=== PATIENT | male | born 1950 | race Caucasian/White ===

== ENCOUNTER → 2017-01-01 | Day surgery (SDC) | payer MEDICARE, OTHER ==
[~2017-01-01] MED LIST: Lactated Ringers 1,000 ML IV SCH; Propofol 200 MG/20 ML SDV IV ONE
[2017-01-01 11:17] VITALS: BP 140/78
--- NOTE | 2017-01-04 06:56 | OR ---
DATE OF OPERATION: 01/01/2017 PREOPERATIVE DIAGNOSIS: CHRONIC GASTROESOPHAGEAL REFLUX DISEASE. POSTOPERATIVE DIAGNOSIS: 1. MILD DUODENITIS. 2. SPONTANEOUS REFLUX WITH SHORT SEGMENT PEARL'S CHANGES. SURGEON: Steve Choi MD PROCEDURE: ESOPHAGOGASTRODUODENOSCOPY WITH BIOPSIES X4, KIAH. ANESTHESIA: GLASS WASHER due to chronic GERD with elevated BMI and sleep apnea. COMPLICATIONS: None. SPECIMEN: 1. Duodenal bulb biopsy x2. 2. Distal esophageal biopsy x2. 3. Antral KIAH. FINDINGS: 1. Full-length EGD. 2. Mild duodenitis without ulceration. 3. Spontaneous reflux. 4. Short segment Pearl's changes. RECOMMENDATIONS: Medical follow up with Dr. Knutson for path reports and ongoing proton pump inhibitor use. INDICATIONS: The patient has been having some ongoing persistent reflux. Dr. Knutson recommended EGD for eval. DESCRIPTION OF PROCEDURE: The patient was prepped and draped, placed in the left lateral decubitus position. A lubricated Olympus gastroscope was inserted over a bit and easily intubated into the esophagus. Esophageal lining was benign in its entire course. The Z-line was crisp at around 40 cm. No obvious hernia present. No stricturing, ulceration, or otherwise. The patient does have one short segment Pearl's changes of about 1 cm to 2 cm related to spontaneous reflux without associated ulceration. Two biopsies of that area were taken. The scope was advanced into the stomach through the pylorus into the third portion of the duodenum. Second and third portion of the duodenum appeared benign. The patient does have some mild duodenitis of the bulb. Two biopsies were taken in the most affected areas. No erosions or ulcerations were seen. The scope was brought back into the stomach and retroflexed. The upper fundus and cardia appeared benign. Upon straightening, full evaluation of the rest of the gastric lining showed no polyps, masses, ulceration, or bleeding sites. No peptic ulcer disease. A CLOtest was obtained. Air was then suctioned and scope removed without complication. URIEL/SONJA /[id number]
== END ==
LOC: CC.SDS 09:46
PROVIDERS: ATTEND Family Medicine
DX: K29.80 Duodenitis without bleeding (principal); K26.9 Duodenal ulcer, unspecified as acute or chronic, without hemorrhage or perforation; K22.70 Barrett's esophagus without dysplasia; K21.9 Gastro-esophageal reflux disease without esophagitis; F41.9 Anxiety disorder, unspecified; M79.604 Pain in right leg; J30.9 Allergic rhinitis, unspecified; N40.0 Benign prostatic hyperplasia without lower urinary tract symptoms; M47.812 Spondylosis without myelopathy or radiculopathy, cervical region; F32.9 Major depressive disorder, single episode, unspecified; R13.10 Dysphagia, unspecified; E78.5 Hyperlipidemia, unspecified; I10 Essential (primary) hypertension; N40.1 Benign prostatic hyperplasia with lower urinary tract symptoms; R35.1 Nocturia; M70.20 Olecranon bursitis, unspecified elbow; R20.2 Paresthesia of skin; M79.671 Pain in right foot; M10.9 Gout, unspecified; G47.30 Sleep apnea, unspecified; M79.89 Other specified soft tissue disorders; E11.9 Type 2 diabetes mellitus without complications; E55.9 Vitamin D deficiency, unspecified; R63.5 Abnormal weight gain; Z79.82 Long term (current) use of aspirin; Z79.84 Long term (current) use of oral hypoglycemic drugs; Z79.899 Other long term (current) drug therapy; Z87.442 Personal history of urinary calculi; Z98.890 Other specified postprocedural states
CPT/HCPCS: 43239; 82962; 87081; J2704; J7120; 00740; 88305

== ENCOUNTER → 2017-12-31 | Day surgery (SDC) | payer MEDICARE, OTHER ==
[2017-12-31 08:54] VITALS: BP 114/70
--- NOTE | 2018-01-03 09:47 | OR ---
DATE OF OPERATION: 12/31/2017 PREOPERATIVE DIAGNOSIS: HISTORY OF POLYPS. POSTOPERATIVE DIAGNOSIS: HISTORY OF POLYPS. SURGEON: Steve Choi MD PROCEDURE: FULL-LENGTH COLONOSCOPY WITH POLYP REMOVAL X2, POLYP BIOPSY X4, LIPOMA BIOPSY X2. ANESTHESIA: FREELANCE RECRUITER. COMPLICATIONS: None. SPECIMEN: 1. Cecal biopsy x4. 2. Two small sessile polyps. 3. Biopsy x2, lipoma. FINDINGS: 1. Full-length colonoscopy. 2. Two larger villous adenomas in cecum/proximal ascending colon. 3. Hyperplastic polyps x2. 4. Submucosal lipoma. 5. Extremely poor bowel prep. 6. Minimal sigmoid diverticulosis. RECOMMENDATIONS: The patient will need consultation with Dr. Ken for endoscopic versus surgical removal of large villous adenoma near cecum. INDICATIONS: The patient apparently had a colonoscopy about 6 years ago, had 3 tubular adenomas removed. He was due for a 5-year followup. DESCRIPTION OF PROCEDURE: The patient was prepped and draped, placed in the left lateral decubitus position. A lubricated Olympus colonoscope was inserted and ultimately advanced to the cecum. The patient had a poor prep. A lot of liquid dark stool throughout, many areas were suctioned, many were not. Cecal pouch was visualized including the ileocecal valve with a lot of particulate stool in the cecal pouch, it was difficult to irrigate that out. Right alongside the ileocecal valve and the immediate proximal ascending colon, the patient had 2 separate villous lesions, 1 was elongated and likely removable with a snare. The second one deeper along the cecal rim was much larger, felt unsafe to remove in [place]. We did do 2 biopsies of each area. The rest of the ascending colon appeared benign, although visualization was difficult at times. In the mid to distal transverse colon, the patient had a larger submucosal lipoma, biopsy x2 and classic in appearance. Descending colon appeared benign. The sigmoid area did have a few scattered diverticula, but nothing severe. The patient did have 2 separate and small hyperplastic- appearing polyps, 1 in the mid to distal sigmoid colon, the second in the rectal vault, both were removed with a forceps biopsy x2 in their entirety. Resolution of bleeding was spontaneous. The rectal vault appeared benign. Other than that small polyp, retroflexion did not show any obvious perianal lesions. Air was then suctioned. Scope was removed without complication. URIEL/SONJA /[id number]
== END ==
LOC: CC.SDS 07:01
PROVIDERS: ATTEND Family Medicine
DX: Z12.11 Encounter for screening for malignant neoplasm of colon (principal); D12.0 Benign neoplasm of cecum; D12.5 Benign neoplasm of sigmoid colon; K62.1 Rectal polyp; D17.5 Benign lipomatous neoplasm of intra-abdominal organs; K57.30 Diverticulosis of large intestine without perforation or abscess without bleeding; G47.33 Obstructive sleep apnea (adult) (pediatric); E11.9 Type 2 diabetes mellitus without complications; E03.9 Hypothyroidism, unspecified; I10 Essential (primary) hypertension; E53.8 Deficiency of other specified B group vitamins; Z86.010 Personal history of colon polyps; Z79.82 Long term (current) use of aspirin; Z79.84 Long term (current) use of oral hypoglycemic drugs; Z79.51 Long term (current) use of inhaled steroids; Z79.1 Long term (current) use of non-steroidal anti-inflammatories (NSAID); Z79.899 Other long term (current) drug therapy; Z99.89 Dependence on other enabling machines and devices
CPT/HCPCS: 82962; J2704; J7120

== ENCOUNTER 2021-03-30 22:47 | Emergency (ER) | payer MEDICARE, OTHER ==
[2021-03-30 23:06] VITALS: BP 167/77; PULSE 86
--- NOTE | 2021-03-30 23:33 | EDM.PDOC ---
ED HPI GENERAL MEDICAL PROBLEM - General Chief Complaint: General Stated Complaint: increased blood pressure Time Seen by Provider: 03/30/21 23:06 Source of Information: Reports: Patient History Limitations: Reports: No Limitations - History of Present Illness INITIAL COMMENTS - FREE TEXT/NARRATIVE: This patient is a 70 year old male that presents to the ER with . Patient r eports that he is here due to his blood pressure being high at home since . They just started taking his BP at home on . He and report having high readings of 170s/90s,100. The patient reports seeing Dr Flanagan cardiology on Wednesday and being cleared and not have stress test done. Patient denies any symptoms. He denies chest pain, n, v, shortness of breath, headache, unilateral weakness, weakness, lightheaded, dizziness. Onset Date: 03/27/21 Duration: Day(s): (3) Improves with: Reports: None Worsens with: Reports: None Associated Symptoms: Reports: No Other Symptoms - Related Data Allergies Allergy/AdvReac Type Severity Reaction Status Date / Time No Known Allergies Allergy Verified 12/31/17 07:17 Home Meds: Home Meds Acetaminophen [Tylenol Extra Strength] 500 mg PO Q4H PRN 03/15/15 [History] Aspirin [Adult Low Dose Aspirin EC] 81 mg PO DAILY 03/15/15 [History] Fluticasone Propionate [Flonase] 2 spray NASBOTH DAILY PRN 03/15/15 [History] NIFEdipine [Nifedical Xl] 60 mg PO DAILY 03/15/15 [History] metFORMIN HCl [Metformin HCl] 500 mg PO BID 03/15/15 [History] Ibuprofen 1 tab PO Q6HR PRN 04/25/15 [History] Cholecalciferol (Vitamin D3) [Vitamin D3] 2,000 unit PO DAILY 06/02/16 [History] Acetaminophen [Tylenol Extra Strength] 1 tab PO Q4H PRN 12/29/17 [History] Cholecalciferol (Vitamin D3) [Vitamin D3] 2,000 unit PO DAILY 12/29/17 [History] Gabapentin [Neurontin] 100 mg PO BID 12/29/17 [History] Gabapentin [Neurontin] 200 - 300 mg PO BEDTIME 12/29/17 [History] Lisinopril 10 mg PO DAILY 12/31/17 [History] Past Medical History HEENT History: Reports: Impaired Vision Cardiovascular History: Reports: High Cholesterol, Hypertension Genitourinary History: Reports: BPH, Renal Calculus Musculoskeletal History: Reports: Osteoarthritis Neurological History: Reports: Other (See Below) Other Neuro History: parasthesias Psychiatric History: Reports: Depression Endocrine/Metabolic History: Reports: Diabetes, Type II, Obesity/BMI 30+, Vitamin D Deficiency - Past Surgical History HEENT Surgical History: Reports: Eye Surgery Musculoskeletal Surgical History: Reports: Other (See Below) Social & Family History - Caffeine Use Caffeine Use: Reports: Coffee - Living Situation & Occupation Living situation: Reports: , with Spouse Occupation: Employed ED ROS GENERAL - Review of Systems Review Of Systems: See Below Constitutional: Reports: No Symptoms HEENT: Reports: No Symptoms Respiratory: Reports: No Symptoms Cardiovascular: Reports: No Symptoms Endocrine: Reports: No Symptoms GI/Abdominal: Reports: No Symptoms : Reports: No Symptoms Musculoskeletal: Reports: No Symptoms Skin: Reports: No Symptoms Neurological: Reports: No Symptoms Psychiatric: Reports: No Symptoms Hematologic/Lymphatic: Reports: No Symptoms Immunologic: Reports: No Symptoms ED EXAM, GENERAL - Physical Exam Exam: See Below Exam Limited By: No Limitations General Appearance: Alert, WD/WN, No Apparent Distress Respiratory/Chest: No Respiratory Distress, Lungs Clear, Normal Breath Sounds, No Accessory Muscle Use Cardiovascular: Normal Peripheral Pulses, Regular Rate, Rhythm Neurological: Alert, Oriented Psychiatric: Normal Affect, Normal Mood Skin Exam: Warm, Dry Course - Vital Signs Last Recorded V/S: Last Vital Signs Temp 100 F 03/30/21 22:50 Pulse 86 03/30/21 22:50 Resp 18 03/30/21 22:50 BP 167/77 H 03/30/21 22:50 Pulse Ox 95 03/30/21 22:50 Departure - Departure Time of Disposition: 23:26 Disposition: Home, Self-Care 01 Condition: Good Clinical Impression: Hypertension Qualifiers: Hypertension type: primary hypertension Qualified Code(s): I10 - Essential (primary) hypertension - Discharge Information *PRESCRIPTION DRUG MONITORING PROGRAM REVIEWED*: Not Applicable *COPY OF PRESCRIPTION DRUG MONITORING REPORT IN PATIENT S[place]: Not Applicable Instructions: Managing Your Hypertension, Preventing Hypertension, Hypertension, Adult, [id number] Additional Instructions: Followup with your primary care provider by calling for an appointment You may stop in to the clinic during clinic hours for blood pressure checks if you would like You may present your recorded at home blood pressures to your primary care provider during your visit If you are going to continue to take at home blood pressures: Please ensure you've been sitting for 30 minutes, no crossing of legs, rest arms downward Please return to the ER for stroke, heart attack, chest pain, shortness of breath Sepsis Event Note (ED) - Evaluation Sepsis Screening Result: No Definite Risk - Focused Exam Vital Signs: Vital Signs Temp Pulse Resp BP Pulse Ox 03/30/21 22:50 100 F 86 18 167/77 H 95 - Assessment/Plan Plan: PLEASE SEE RN NOTE FOR PFSH Educated patient and about proper technique for taking BP. Educated reasoning behind not treating blood pressure in the Emergency department. He currently has no symptoms, will discharge. He is educated to followup with his PCP for BP management safely.
== END 2021-03-30 23:55 | disposition home or self-care (01) ==
LOC: CC.ED 22:47
DX: I10 Essential (primary) hypertension (principal); E78.00 Pure hypercholesterolemia, unspecified; E11.9 Type 2 diabetes mellitus without complications; E66.9 Obesity, unspecified; Z68.33 Body mass index [BMI] 33.0-33.9, adult; Z79.82 Long term (current) use of aspirin; Z79.899 Other long term (current) drug therapy; Z79.84 Long term (current) use of oral hypoglycemic drugs
CPT/HCPCS: 99283; 99284

== ENCOUNTER 2023-07-04 06:59 | Emergency (ER) | payer MEDICARE, OTHER ==
[2023-07-04] MEDS ORDERED: Aspirin 81 MG Tab.Chew PO ONE (07:09)
[2023-07-04 07:31] LABS: BASOPHILS ABSOLUTE AUTO 0.03 10^3/uL (0.00-0.50); BASOPHILS PERCENT AUTO 0.5 % (0-1); EOSINOPHILS ABSOLUTE AUTO 0.35 10^3/uL (0.00-1.50); EOSINOPHILS PERCENT AUTO 6.2 % (0-6); HEMATOCRIT 38.8 % (42.0-52.0); HEMOGLOBIN 13.3 g/dL (14.0-18.0); IMMATURE GRAN ABSOLUTE AUTO 0.01 10^3/uL (0.00-0.49); IMMATURE GRAN PERCENT AUTO 0.2 % (0.0-4.9); LYMPHOCYTES ABSOLUTE AUTO 1.76 10^3/uL (0.60-5.00); LYMPHOCYTES PERCENT AUTO 31.2 % (24-44); MEAN CORPUSCULAR HEMOGLOBIN 30.9 pg (27.0-32.0); MEAN CORPUSCULAR HGB CONC 34.3 g/dL (32.0-36.0); MEAN CORPUSCULAR VOLUME 90.2 fL (83.0-97.0); MONOCYTES ABSOLUTE AUTO 0.68 10^3/uL (0.00-1.50); NEUTROPHILS ABSOLUTE AUTO 2.82 x10^3/uL (1.80-8.00); NEUTROPHILS PERCENT AUTO 49.9 % (41-71); PLATELET COUNT,PLT 197 10^3/uL (150-400); WHITE BLOOD CELL COUNT,WBC 5.7 10^3/uL (4.0-11.0)
[2023-07-04 07:42] LABS: ALBUMIN 3.8 g/dL (3.4-5.0); BILIRUBIN TOTAL 0.8 mg/dL (0.0-1.0); CALCIUM 9.3 mg/dL (8.4-10.1); CREATININE 1.3 mg/dL (0.7-1.3); EST CRCL DRUG DOSING (CG) 55.55 mL/min; MAGNESIUM 1.6 mg/dL (1.8-2.4); POTASSIUM,K 4.2 mEq/L (3.5-5.0); PROTEIN TOTAL,TP 7.1 g/dL (6.4-8.2)
[2023-07-04 07:51] LABS: INR 1.02 (0.92-1.18); PROTHROMBIN TIME 10.5 SEC (9.3-11.3)
[2023-07-04 11:35] VITALS: BP 166/87; PULSE 64
== END 2023-07-04 11:41 | disposition home or self-care (01) ==
LOC: CC.ED 06:59
DX: R07.2 Precordial pain (principal); E66.9 Obesity, unspecified; E11.9 Type 2 diabetes mellitus without complications; E78.00 Pure hypercholesterolemia, unspecified; I10 Essential (primary) hypertension; M19.90 Unspecified osteoarthritis, unspecified site; Z20.822 Contact with and (suspected) exposure to COVID-19; Z79.84 Long term (current) use of oral hypoglycemic drugs; Z79.899 Other long term (current) drug therapy
CPT/HCPCS: 36415; 71046; 80053; 83690; 83735; 84484; 85025; 85610; 85730; 93005; 93010; 99284; 99285; A9270-GY; U0002

== ENCOUNTER 2024-12-22 07:50 | Emergency (ER) | payer MEDICARE, OTHER ==
[2024-12-22 08:14] LABS: BASOPHILS ABSOLUTE AUTO 0.02 10^3/uL (0.00-0.50); BASOPHILS PERCENT AUTO 0.3 % (0-1); EOSINOPHILS ABSOLUTE AUTO 0.33 10^3/uL (0.00-1.50); EOSINOPHILS PERCENT AUTO 5.8 % (0-6); HEMATOCRIT 43.4 % (42.0-52.0); HEMOGLOBIN 14.4 g/dL (14.0-18.0); IMMATURE GRAN ABSOLUTE AUTO 0.01 10^3/uL (0.00-0.49); IMMATURE GRAN PERCENT AUTO 0.2 % (0.0-4.9); LYMPHOCYTES ABSOLUTE AUTO 1.78 10^3/uL (0.60-5.00); LYMPHOCYTES PERCENT AUTO 31.1 % (24-44); MEAN CORPUSCULAR HGB CONC 33.2 g/dL (32.0-36.0); MEAN CORPUSCULAR VOLUME 93.3 fL (83.0-97.0); NEUTROPHILS ABSOLUTE AUTO 2.78 x10^3/uL (1.80-8.00); NEUTROPHILS PERCENT AUTO 48.6 % (41-71); PLATELET COUNT,PLT 152 10^3/uL (150-400); RED BLOOD CELL COUNT 4.65 x10^6/uL (4.50-6.00); WHITE BLOOD CELL COUNT,WBC 5.7 10^3/uL (4.0-11.0)
[2024-12-22 08:25] LABS: INR 1.01 (0.92-1.18); PROTHROMBIN TIME 10.5 SEC (9.3-11.3); PTT,PARTIAL THROMBOPLSTIN TIME 25.9 SEC (20.0-30.0)
[2024-12-22 08:26] LABS: CALCIUM 9.3 mg/dL (8.4-10.1); CREATININE 1.1 mg/dL (0.7-1.3); EST CRCL DRUG DOSING (CG) 63.69 mL/min; MAGNESIUM 1.6 mg/dL (1.8-2.4); POTASSIUM,K 4.2 mEq/L (3.5-5.0); PROTEIN TOTAL,TP 7.4 g/dL (6.4-8.2)
[2024-12-22 08:44] VITALS: BP 178/88; PULSE 69
== END 2024-12-22 08:55 | disposition home or self-care (01) ==
LOC: CC.ED 07:50
DX: R00.2 Palpitations (principal); I10 Essential (primary) hypertension; E78.00 Pure hypercholesterolemia, unspecified; E11.9 Type 2 diabetes mellitus without complications; E66.9 Obesity, unspecified; Z68.31 Body mass index [BMI] 31.0-31.9, adult; Z79.899 Other long term (current) drug therapy; Z79.84 Long term (current) use of oral hypoglycemic drugs; Z87.891 Personal history of nicotine dependence
CPT/HCPCS: 36415; 71045; 80053; 83735; 84484; 85025; 85610; 85730; 93005; 93246; 99285

== ENCOUNTER 2025-05-12 22:01 | Emergency (ER) | payer MEDICARE, OTHER ==
[2025-05-12 22:29] VITALS: BP 169/76; PULSE 71
[2025-05-12] MEDS: methylPREDNISolone Acetate 80 MG/ML SDV IM ONE (22:39)
[2025-05-12] MEDS: Acetaminophen/HYDROcodone 325-5 MG Tab PO ONE (22:39)
[2025-05-12] MEDS: Take Home: Acetaminophen/HYDROcodone 325-5 MG, 2 Tab Pack PO ONE (22:40)
[2025-05-12] MEDS: Take Home: predniSONE 20 MG, 4 Tab Pack PO ONE (22:40)
== END 2025-05-12 22:55 | disposition home or self-care (01) ==
LOC: CC.ED 22:01
DX: M11.271 Other chondrocalcinosis, right ankle and foot (principal); E78.00 Pure hypercholesterolemia, unspecified; I10 Essential (primary) hypertension; E11.9 Type 2 diabetes mellitus without complications; Z79.84 Long term (current) use of oral hypoglycemic drugs; Z79.899 Other long term (current) drug therapy; Z87.891 Personal history of nicotine dependence
CPT/HCPCS: 96372; 99283; A9270-GY; J1010